=== PATIENT | female | born 1960 | race Caucasian/White ===

== ENCOUNTER 2018-09-08 19:28 | Emergency (ER) | payer OTHER ==
[~2018-09-08 19:28] MED LIST: Iopamidol 370 76% 125 ML VIAL FS ONE
--- NOTE | 2018-09-08 20:46 | RAD ---
CHEST ONE VIEW: 09/08/18 HISTORY: Pain. COMPARISON: None. FINDINGS: Normal cardiac silhouette. The lungs and pleural spaces are clear. No pneumothorax or osseous abnorm alities. IMPRESSION: No acute cardiopulmonary process. POS: [facility]
[2018-09-08 20:55] LABS: #Basophils 0.1 thou/uL (0.0-0.2); #Eosinphils 0.2 thou/uL (0.0-0.7); #Monocytes 0.5 thou/uL (0.11-0.59); #Neutrophils 3.8 thou/uL (1.40-6.50); %Basophils 1.1 % (0.0-1.0); %Eosinophils 2.4 % (0.0-10.0); %Lymphocytes 30.2 % (21.0-51.0); %Neutrophils 59.4 % (42.0-75.0); Hemoglobin 14.5 g/dL (12.0-16.0); Mean Corpuscular HGB CONC 32.6 g/dL (32.0-36.0); Mean Corpuscular Hemoglobin 28.6 pg (27.0-31.0); Mean Corpuscular Volume 87.7 fL (78.0-98.0); Mean Platelet Volume 7.9 fL (7.4-10.4); Platelet Count 317 thou/uL (130-400); RBC Distribution Width 12.7 % (11.5-14.5); Red Blood Cell (RBC) Count 5.09 mill/uL (4.20-5.40); White Blood Cell (WBC) Count 6.4 thou/uL (4.8-10.8)
[2018-09-08 21:07] LABS: ALT (SGPT) 16 U/L (8-55); AST (SGOT) 17 U/L (5-34); Albumin 4.3 g/dL (3.5-5.0); Alkaline Phosphatase 69 U/L (40-150); Anion Gap 14 mmol/L (10-20); BUN (Urea Nitrogen) 18 mg/dL (9.8-20.1); Bilirubin, Total 0.3 mg/dL (0.2-1.2); Calc. Creatinine Clearance 0 mL/min (70-130); Calcium 10.8 mg/dL (7.8-10.44); Carbon Dioxide 28 mmol/L (22-29); Chloride 104 mmol/L (98-107); Estimated GFR-MDRD 70; Globulin 3.2 g/dL (2.4-3.5); Glucose 99 mg/dL (70-105); Potassium 3.2 mmol/L (3.5-5.1); Protein, Total 7.5 g/dL (6.0-8.3); Sodium 143 mmol/L (136-145)
[2018-09-08] MEDS ORDERED: Morphine 10 MG/ML VIAL ONE (21:19)
[2018-09-08] MEDS ORDERED: Ondansetron ODT 4 MG TAB ONE (21:24)
--- NOTE | 2018-09-08 22:47 | CT ---
CT ANGIOGRAM OF THE CHEST 09/08/18 HISTORY: Dyspnea. Chest pain. COMPARISON: None. TECHNIQUE: CT angiogram of the chest is performed in the axial plane. Three dimensional reformatted images are s ubmitted for interpretation. FINDINGS: No mediastinal mass, lymphadenopathy or hematoma. Heart size is within normal limits. No pericardia e ffusion. The thoracic aorta and upper abdominal aorta have a normal caliber. No periaortic fat strand ing. The visualized upper solid abdominal viscera is unremarkable. Adequate contrast opacification of the pulmonary arterial system to the level of the segmental arteri es. No filling defect to suggest thromboembolism. Trachea and central bronchi are patent. Dependent atelectatic changes. Patchy ground glass opacities, nonspecific. Scar/atelectasis in the lingula and middle lobe. No lytic or blastic lesions in the osseous structures. IMPRESSION: No evidence of pulmonary artery embolism to the level of the segmental arteries. POS: [facility]
[2018-09-08] MEDS ORDERED: HYDROcodone/Acetaminophen 5/325 mg Tablet ONE (23:18)
== END 2018-09-08 23:25 | disposition home or self-care (01) ==
LOC: MADERS 19:28
DX: S29.012A Strain of muscle and tendon of back wall of thorax, initial encounter (principal); I10 Essential (primary) hypertension; Z87.891 Personal history of nicotine dependence; E78.00 Pure hypercholesterolemia, unspecified; G43.909 Migraine, unspecified, not intractable, without status migrainosus; X58.XXXA Exposure to other specified factors, initial encounter
CPT/HCPCS: 71045; 71275; 80053; 83880; 84484; 85025; 85379; 93005; 96372; J2270; Q0162; Q9967

== ENCOUNTER 2019-03-06 20:39 | Emergency (ER) | payer OTHER ==
[2019-03-06] MEDS ORDERED: HYDROmorphone 0.5 MG/0.5 ML SYRINGE ONE (21:16)
[2019-03-06 21:22] LABS: Bilirubin Negative (Negative); Blood, Urine Moderate (Negative); Clarity Slightly Cloudy (Clear); Glucose, Urine (Dipstick) Negative (Negative); Leukocyte Moderate (Negative); Nitrite Negative (Negative); Protein, Urine (Dipstick) 30 mg/dL (Neg-Trace); Urobilinogen 0.2 mg/dL (Less than 2)
[2019-03-06] MEDS ORDERED: Ondansetron ODT 4 MG TAB ONE ×2 (21:22→22:38)
[2019-03-06 21:25] LABS: Bacteria/HPF 1+ HPF (None Seen); Squamous Epithelial 0-3 HPF (0-3); WBC/HPF Greater Than 50 HPF (0-3)
[2019-03-06 21:56] LABS: #Basophils 0.1 thou/uL (0.0-0.2); #Eosinphils 0.1 thou/uL (0.0-0.7); #Lymphocytes 2.3 thou/uL (1.20-3.40); #Monocytes 0.9 thou/uL (0.11-0.59); #Neutrophils 11.3 thou/uL (1.40-6.50); %Basophils 0.9 % (0.0-1.0); %Lymphocytes 15.5 % (21.0-51.0); %Monocytes 5.8 % (0.0-10.0); %Neutrophils 76.8 % (42.0-75.0); Hemoglobin 14.7 g/dL (12.0-16.0); Mean Corpuscular HGB CONC 33.3 g/dL (32.0-36.0); Mean Corpuscular Hemoglobin 27.5 pg (27.0-31.0); Mean Corpuscular Volume 82.5 fL (78.0-98.0); Mean Platelet Volume 7.1 fL (7.4-10.4); Platelet Count 299 thou/uL (130-400); Red Blood Cell (RBC) Count 5.34 mill/uL (4.20-5.40); White Blood Cell (WBC) Count 14.7 thou/uL (4.8-10.8)
[2019-03-06 22:14] LABS: ALT (SGPT) 16 U/L (8-55); AST (SGOT) 17 U/L (5-34); Albumin 4.7 g/dL (3.5-5.0); Alkaline Phosphatase 91 U/L (40-150); Anion Gap 16 mmol/L (10-20); BUN (Urea Nitrogen) 24 mg/dL (9.8-20.1); Bilirubin, Total 0.5 mg/dL (0.2-1.2); Calc. Creatinine Clearance 0 mL/min (70-130); Calcium 11.3 mg/dL (7.8-10.44); Carbon Dioxide 26 mmol/L (22-29); Chloride 98 mmol/L (98-107); Estimated GFR-MDRD 60; Globulin 3.4 g/dL (2.4-3.5); Glucose 103 mg/dL (70-105); Lipase 16 U/L (8-78); Protein, Total 8.1 g/dL (6.0-8.3); Sodium 137 mmol/L (136-145)
--- NOTE | 2019-03-06 22:14 | CT ---
CT ABDOMEN AND PELVIS WITHOUT CONTRAST: History: Right flank pain, lower abdominal pain, nausea. FINDINGS: Absence of oral and IV contrast reduces the sensitivity of the exam, particularly for evaluation of s olid organs and bowel. The lung bases are clear. No free air or free fluid is seen in the abdomen or pelvis. No calcified ga llstones are noted. There is a 3 cm low density lesion close to the hilum of the liver with attenuati on values not consistent with a simple cyst. No calculi are seen in the kidneys, ureters, or urinary bladder. No hydroureteronephrosis are seen on either side. A normal appearing appendix is present. There are vascular calcifications without evidence of aneurysmal dilatation or the abdominal aorta. T here are degenerative changes in the spine. IMPRESSION: 1. No CT evidence of urinary tract calculi/obstruction or appendicitis. 2. 2 cm liver lesion. This should be evaluated with ultrasound on a non-emergent basis. POS: [facility]
[2019-03-06] MEDS ORDERED: Potassium Chloride 20 MEQ TAB ONE (22:30)
[2019-03-06] MEDS ORDERED: Lidocaine 2% 20 ml MDV ONE (22:34)
[2019-03-06] MEDS ORDERED: cefTRIAXone\\ROCEPHIN 1 GM VIAL ONE (22:34)
[2019-03-06] MEDS ORDERED: HYDROcodone/Acetaminophen 5/325 mg Tablet ONE (22:38)
== END 2019-03-06 23:25 | disposition home or self-care (01) ==
LOC: MADERS 20:39
DX: N12 Tubulo-interstitial nephritis, not specified as acute or chronic (principal); E87.6 Hypokalemia; E78.5 Hyperlipidemia, unspecified; E78.00 Pure hypercholesterolemia, unspecified; I10 Essential (primary) hypertension; Z87.891 Personal history of nicotine dependence; Z79.899 Other long term (current) drug therapy
CPT/HCPCS: 36415; 74176; 80053; 81003; 81015; 83605; 83690; 85025; 87077; 87086; 87186; 96372; J0696; J1170; J2001; Q0162

== ENCOUNTER 2020-03-12 19:57 | Emergency (ER) | payer OTHER ==
[2020-03-12] MEDS ORDERED: Acetaminophen 500 MG TAB ONE (20:51)
[2020-03-12] MEDS ORDERED: Ondansetron ODT 4 MG TAB ONE (20:51)
--- NOTE | 2020-03-12 21:02 | RAD ---
LEFT WRIST THREE VIEWS: 03/12/20 INDICATION: Knocked over by a dog with left wrist pain. COMPARISON: None. FINDINGS: No acute fracture or subluxation is evident. Carpal alignment appears preserved. Soft tissues appear within normal limits. IMPRESSION: No acute osseous abnormality. POS: [facility]
--- NOTE | 2020-03-12 21:03 | RAD ---
LUMBAR SPINE THREE VIEWS: 03/12/20 INDICATION: Knocked over by a dog with back pain. COMPARISON: None. FINDINGS: No acute fracture or subluxation is evident. There is mild spondylosis of the lumbar spine. There is disc degenerative disease at L5-S1. SI joints appear within normal limits. There are mild vascular ca lcification in the aortic arch. IMPRESSION: No acute osseous abnormality. POS: [facility]
[2020-03-12] MEDS ORDERED: HYDROcodone/Acetaminophen 5/325 mg Tablet ONE (21:14)
== END 2020-03-12 21:24 | disposition home or self-care (01) ==
LOC: MADERS 19:57
DX: S63.502A Unspecified sprain of left wrist, initial encounter (principal); M54.5 Low back pain; I10 Essential (primary) hypertension; E78.5 Hyperlipidemia, unspecified; G43.909 Migraine, unspecified, not intractable, without status migrainosus; E78.00 Pure hypercholesterolemia, unspecified; Z87.891 Personal history of nicotine dependence; Z79.899 Other long term (current) drug therapy; W54.1XXA Struck by dog, initial encounter
CPT/HCPCS: 72100; Q0162

== ENCOUNTER 2021-05-18 18:38 | Emergency (ER) | payer OTHER ==
[2021-05-18] MEDS ORDERED: HYDROcodone/Acetaminophen 5/325 mg Tablet ONE (19:15)
== END 2021-05-18 19:45 | disposition home or self-care (01) ==
LOC: MADERS 18:38
DX: S63.501A Unspecified sprain of right wrist, initial encounter (principal); E78.5 Hyperlipidemia, unspecified; I10 Essential (primary) hypertension; G43.909 Migraine, unspecified, not intractable, without status migrainosus; W22.8XXA Striking against or struck by other objects, initial encounter

== ENCOUNTER 2022-07-30 20:59 | Emergency (ER) | payer BC ==
[2022-07-30] MEDS ORDERED: Promethazine 25 MG TAB ONE (21:45)
[2022-07-30] MEDS ORDERED: predniSONE 10 MG TAB ONE (21:45)
== END 2022-07-30 21:56 | disposition home or self-care (01) ==
LOC: MADERS 20:59
DX: M25.561 Pain in right knee (principal); E78.5 Hyperlipidemia, unspecified; I10 Essential (primary) hypertension; Z79.899 Other long term (current) drug therapy
CPT/HCPCS: 99283; J7512; Q0169

== ENCOUNTER 2023-09-02 17:20 | Emergency (ER) | payer BC ==
[2023-09-02] MEDS ORDERED: Diazepam 5 MG TAB ONE (17:39)
[2023-09-02] MEDS ORDERED: fentaNYL 50 mcg/mL 1 mL Vial ONE ×3 (18:34→22:09)
[2023-09-02 21:15] LABS: #Basophils 0.1 thou/uL (0.0-0.2); #Eosinphils 0.1 thou/uL (0.0-0.7); #Lymphocytes 2.2 thou/uL (1.20-3.40); #Monocytes 0.7 thou/uL (0.11-0.59); #Neutrophils 5.1 thou/uL (1.40-6.50); %Basophils 0.8 % (0.0-1.0); %Eosinophils 1.3 % (0.0-10.0); %Lymphocytes 27.3 % (21.0-51.0); %Monocytes 8.4 % (0.0-10.0); %Neutrophils 62.2 % (42.0-75.0); Hematocrit 49.3 % (36.0-47.0); Hemoglobin 15.5 g/dL (12.0-16.0); Mean Corpuscular HGB CONC 31.5 g/dL (32.0-36.0); Mean Corpuscular Hemoglobin 28.2 pg (27.0-31.0); Mean Corpuscular Volume 89.4 fl (78.0-98.0); Mean Platelet Volume 8.3 fL (7.4-10.4); Platelet Count 286 10x3/uL (130-400); RBC Distribution Width 13.7 % (11.5-14.5); Red Blood Cell (RBC) Count 5.52 mill/uL (4.20-5.40); White Blood Cell (WBC) Count 8.2 10x3/uL (4.8-10.8)
[2023-09-02] MEDS ORDERED: Ondansetron PF 4 MG/2 ML Vial ONE ×2 (21:16→22:09)
[2023-09-02 21:32] LABS: ALT (SGPT) 14 U/L (8-55); AST (SGOT) 16 U/L (5-34); Albumin 4.6 g/dL (3.4-4.8); Alkaline Phosphatase 82 U/L (40-110); Anion Gap 18 mmol/L (10-20); BUN (Urea Nitrogen) 13 mg/dL (9.8-20.1); Bilirubin, Total 0.4 mg/dL (0.2-1.2); Calc. Creatinine Clearance 0 mL/min (70-130); Calcium 10.6 mg/dL (7.8-10.44); Carbon Dioxide 19 mmol/L (23-31); Chloride 108 mmol/L (98-107); Estimated GFR 65; Globulin 3.3 g/dL (2.4-3.5); Glucose 109 mg/dL (80-115); Potassium 3.8 mmol/L (3.5-5.1); Protein, Total 7.9 g/dL (5.8-8.1); Sodium 141 mmol/L (136-145)
[2023-09-02 21:38] LABS: Troponin I Less than 0.010 ng/mL (< 0.028)
== END 2023-09-02 22:18 | disposition short-term general hospital (02) ==
LOC: MADERS 17:20
DX: M48.061 Spinal stenosis, lumbar region without neurogenic claudication (principal); M62.81 Muscle weakness (generalized); E78.5 Hyperlipidemia, unspecified; I10 Essential (primary) hypertension; Z79.899 Other long term (current) drug therapy; W18.30XA Fall on same level, unspecified, initial encounter
CPT/HCPCS: 36415; 70450; 72125; 72128; 72131; 72170; 80053; 84484; 85025; 93005; 96374; 96375; 96376; J2405; J3010